=== PATIENT | female | born 1950 ===

== ENCOUNTER 2016-12-24 12:01 | Emergency (ER) | payer MEDICARE, OTHER ==
[2016-12-24 12:01] VITALS: BMI 34.7
[2016-12-24] MEDS ORDERED: Sodium Chloride 0.9% 1,000 ML IV ONE (12:42)
[2016-12-24 12:47] VITALS: TEMP 97.9
[2016-12-24 13:06] LABS: HEMATOCRIT 40.2 % (34.0-47.0); MEAN CELL VOLUME 88.7 fL (81.0-99.0); MEAN CORPUSCULAR HEMOGLOBIN 29.2 pg (27.0-31.0); MEAN CORPUSCULAR HGB CONC 32.9 g/dL (33.0-37.0); RED CELL DISTRIBUTION WIDTH 14.2 % (11.5-14.5); WHITE BLOOD COUNT 10.5 K/uL (4.8-10.8)
[2016-12-24 13:16] LABS: RBC URINE 4 /hpf (0-3); URINE BACTERIA RARE (<OCC); URINE BILIRUBIN NEGATIVE (NEGATIVE); URINE BLOOD 1+ (NEGATIVE); URINE COLOR Straw (YELLOW); URINE GLUCOSE (UA) NORMAL (Normal); URINE KETONE NEGATIVE (NEGATIVE); URINE LEUKOCYTE ESTERASE 1+ Leu/uL (Negative); URINE PROTEIN NEGATIVE (NEGATIVE); URINE UROBILINOGEN NORMAL mg/dL (0.2-1.0); WBC URINE 4 /hpf (0-5)
[2016-12-24 13:19] LABS: CHLORIDE 98 mmol/L (98-107); POTASSIUM 4.1 mmol/L (3.6-5.2); SODIUM 141 mmol/L (132-148)
[2016-12-24 13:22] LABS: ALB/GLOB RATIO 1.5 (1.0-2.1); ALKALINE PHOSPHATASE 50 U/L (38-126); AST/SGOT 42 U/L (14-36); BILIRUBIN,TOTAL 0.6 mg/dL (0.2-1.3); BLOOD UREA NITROGEN 21 mg/dL (7-17); CALCIUM 9.2 mg/dl (8.6-10.4); CARBON DIOXIDE 28 mmol/L (22-30); GFR AFRICAN-AMERICAN > 60; GLUCOSE,RANDOM 87 mg/dL (65-105); TOTAL PROTEIN 6.5 g/dL (6.3-8.3)
[2016-12-24 13:23] LABS: ALT/SGPT 58 U/L (9-52)
--- NOTE | 2016-12-24 14:04 | CT ---
PROCEDURE: CT HEAD WITHOUT CONTRAST. HISTORY: dizziness x2 days COMPARISON: None available. TECHNIQUE: Axial computed tomography images were obtained through the head/brain without intravenous contrast. Radiation dose: Total exam DLP = 1096 mGy-cm. This CT exam was performed using one or more of the following dose reduction techniques: Automated exposure control, adjustment of the mA and/or kV according to patient size, and/or use of iterative reconstruction technique. FINDINGS: HEMORRHAGE: No intracranial hemorrhage. BRAIN: No mass effect or edema. No atrophy or chronic microvascular ischemic changes. Punctate bilateral basal ganglia calcifications. VENTRICLES: Unremarkable. No hydrocephalus. CALVARIUM: Unremarkable. PARANASAL SINUSES: Unremarkable as visualized. No significant inflammatory changes. MASTOID AIR CELLS: Unremarkable as visualized. No inflammatory changes. OTHER FINDINGS: None. IMPRESSION: No acute intracranial abnormality. If focal neurologic deficit persists, consider MRI.
--- NOTE | 2016-12-24 14:31 | C.PDOC ---
History Of Present Illness 66 year old female presents to the ED for evaluation of dizziness which began yesterday. Patient describes the dizziness as a spinning sensation that is worse upon standing. Patient notes she had one similar episode in the past and underwent MRI, the results of which were unremarkable. Patient went to see her PMD who advised her to visit the ED for further evaluation. She denies headache , vision change, extremity numbness/weakness. Time Seen by Provider: 12/24/16 12:32 Chief Complaint (Nursing): Dizziness/Lightheaded History Per: Patient History/Exam Limitations: no limitations Onset/Duration Of Symptoms: Hrs Current Symptoms Are (Timing): Still Present Activity At Onset Of Symptoms: Standing Associated Symptoms Preceding Syncopal Episode: Worse With Standing Seizure Or Post-ictal Symptoms: None Possible Causative Factor(s): Lightheaded W/Standing Fall Associated With With Symptoms: No Additional History Per: Patient Past Medical History Reviewed: Historical Data, Nursing Documentation, Vital Signs Vital Signs: Last Vital Signs Temp 97.9 F 12/24/16 12:05 Pulse 61 12/24/16 14:54 Resp 18 12/24/16 14:54 BP 99/65 L 12/24/16 14:54 Pulse Ox 96 12/24/16 17:51 - Medical History PMH: Arthritis, Asthma, Colonic Polyps, Depression, Gastritis, HTN, Hypercholesterolemia Surgical History: Appendectomy, Cholecystectomy, Endoscopy Family History: States: Unknown Family Hx - Social History Hx Tobacco Use: No Hx Alcohol Use: No Hx Substance Use: No - Immunization History Hx Influenza Vaccination: Yes Hx Pneumococcal Vaccination: No Review Of Systems Eyes: Negative for: Vision Change Neurological: Positive for: Dizziness. Negative for: Weakness, Numbness, Headache Physical Exam - Physical Exam Appears: Non-toxic, No Acute Distress Skin: Normal Color, Warm, Dry Head: Atraumatic, Normacephalic Eye(s): bilateral: Normal Inspection, EOMI Ear(s): Bilateral: Normal Nose: Normal Oral Mucosa: Moist Neck: Normal ROM, Supple Chest: Symmetrical, No Deformity, No Tenderness Cardiovascular: Rhythm Regular, No Murmur Respiratory: Normal Breath Sounds, No Rales, No Rhonchi, No Wheezing Extremity: Normal ROM, Capillary Refill (less than 2 seconds ) Neurological/Psych: Oriented x3, Normal Speech, Normal Cranial Nerves, No Cerebellar Signs, Other (no focal deficits ) Gait: Steady ED Course And Treatment - Laboratory Results Result Diagrams: 12/24/16 13:01 12/24/16 13:01 Lab Interpretation: No Acute Changes ECG: Interpreted By Me, Viewed By Me ECG Rhythm: Sinus Rhythm ECG Interpretation: No Acute Changes, No Changes From Prior (09/03/2006) Rate From EC O2 Sat by Pulse Oximetry: 96 (on RA) Pulse Ox Interpretation: Normal - CT Scan/US CT Head Other Rad Studies (CT/US): Interpreted By Me, Read By Radiologist, Radiology Report Reviewed CT/US Interpretation: PROCEDURE: CT HEAD WITHOUT CONTRAST. HISTORY: dizziness x2 days. COMPARISON: None available. TECHNIQUE: Axial computed tomography images were obtained through the head/brain without intravenous contrast. Radiation dose: Total exam DLP = 1096 mGy-cm. This CT exam was performed using one or more of the following dose reduction techniques: Automated exposure control, adjustment of the mA and/or kV according to patient size, and/or use of iterative reconstruction technique. FINDINGS: HEMORRHAGE: No intracranial hemorrhage. BRAIN: No mass effect or edema. No atrophy or chronic microvascular ischemic changes. Punctate bilateral basal ganglia calcifications. VENTRICLES: Unremarkable. No hydrocephalus. CALVARIUM: Unremarkable. PARANASAL SINUSES: Unremarkable as visualized. No significant inflammatory changes. MASTOID AIR CELLS: Unremarkable as visualized. No inflammatory changes. OTHER FINDINGS: None. IMPRESSION: No acute intracranial abnormality. If focal neurologic deficit persists, consider MRI. Medical Decision Making Medical Decision Making: Impression: 66 year old female with dizziness Plan: * labs * CT Head * EKG * Reglan IVP * IV fluids * reassess and disposition Progress: labs, CT Head, EKG ordered and reviewed. Patient received Reglan IVP and IV Fluids. CT Head results are unremarkable. On reassessment, patient is resting comfortably, and reports feeling better. She no longer feels dizzy. She is showing no signs of distress and is stable for discharge. Patient is advised to follow up with her PMD within 1-2 days for further evaluation. Disposition Counseled Patient/Family Regarding: Diagnosis, Need For Followup, Rx Given - Disposition Referrals: Kiki Soriano MD [Non-Staff] - Disposition: HOME/ ROUTINE Disposition Time: 14:28 Condition: IMPROVED Additional Instructions: Imelda laboratorios y la TC de la adore freya normales Ollie medicamentos Antivert 1-2 pldoras cada 8 horas segn sea necesario para el vrtigo realice un seguimiento con gomez mdico para deshawn evaluacin posterior. Prescriptions: Meclizine [Meclizine*] 25 mg PO Q8 PRN #30 tab PRN Reason: Dizziness Instructions: Vertigo (ED) Forms: [email or web address] ([place]i) Print Language: AFGHAN - POA Present On Arrival: None - Clinical Impression Clinical Impression: Vertigo - PA / APPLIED ANTHROPOLOGIST / Resident Statement MD/DO has reviewed & agrees with the documentation as recorded. - Scribe Statement The provider has reviewed the documentation as recorded by the Scribe (Skyla Le) All medical record entries made by the Scribe were at my direction and personally dictated by me. I have reviewed the chart and agree that the record accurately reflects my personal performance of the history, physical exam, medical decision making, and the department course for this patient. I have also personally directed, reviewed, and agree with the discharge instructions and disposition.
[2016-12-24 14:55] VITALS: BP 99/65; PULSE 61; RESP 18
[2016-12-24 17:45] VITALS: O2SAT 96
== END 2016-12-24 15:19 | disposition home or self-care (01) ==
LOC: C.ER 12:01
DX: R42 Dizziness and giddiness (principal); I10 Essential (primary) hypertension; E78.00 Pure hypercholesterolemia, unspecified; F17.210 Nicotine dependence, cigarettes, uncomplicated
CPT/HCPCS: 70450; 80053; 81001; 85027; 96361; 96374; 99285; J2765; J7040

== ENCOUNTER 2018-07-28 08:32 | Outpatient (CLI) | payer MEDICARE, MEDICAID | END 2018-07-28 08:33 | disposition home or self-care (01) | LOC: C.RADIC 08:32 ==